=== PATIENT | female | born 1995 | race Caucasian/White ===

== ENCOUNTER 2021-09-23 14:37 | Emergency (ER) | payer OTHER ==
--- NOTE | 2021-09-23 14:49 | ED Syncope ---
General Chief Complaint: Dizziness/Syncope Stated Complaint: DIZZINESS Source of Information: Patient Exam Limitations: No Limitations History of Present Illness Date Seen by Provider: September 23, 2021 Time Seen by Provider: 14:30 Initial Comments Patient is a 25-year-old G1, P0, estimated 29 weeks gestation female whose primary language is Urdu presents with intermittent abdominal pain with constipation since yesterday with headache and syncope earlier this afternoon prior to ED arrival. Patient's spouse states he was treated here for constipation and after taking a Dulcolax suppository the patient became nauseated lightheaded diaphoretic and had a brief syncopal episode lasting 1 to 2 seconds while in the emergency department. The patient did not have any seizure-like activity. Headache is a simple described as moderate to severe. Patient does not have history of headaches. No fevers chills. Patient currently denies abdominal pain, pelvic pain, back pain, vaginal bleed or discharge. No chest pain palpitations or shortness of breath. No other acute symptoms or complaints. Patient spouse acted as an mend worker. No complications with current current . Patient compliant with care. Symptoms Prior to Episode: Lightheadedness, Nausea Precipitating Factors: Other Current Symptoms: Other Allergies and Home Medications Allergies Coded Allergies: No Known Drug Allergies (Unverified , 09/23/21) Patient Home Medication List Home Medication List Reviewed: Yes Review of Systems Constitutional: see HPI EENTM: see HPI Respiratory: see HPI Cardiovascular: see HPI Gastrointestinal: see HPI Genitourinary: see HPI Musculoskeletal: see HPI Skin: see HPI Psychiatric/Neurological: See HPI All Other Systems Reviewed Negative Unless Noted: Yes Past Vrpvfuk-Wxalmh-Varnnh Hx Patient Social History Tobacco Use?: No Physical Exam Vital Signs Vital Signs - First Documented 09/23/21 14:42 Temp 37.0 Pulse 85 Resp 16 B/P (MAP) 107/50 (69) Pulse Ox 100 O2 Delivery Room Air Capillary Refill : Height, Weight, BMI Height: '" Weight: lbs. oz. kg; BMI Method: General Appearance: Other (Diaphoretic, pale) HEENT: PERRL/EOMI, Pharynx Normal, Moist Mucous Membranes Neck: Normal Inspection Cardiovascular: Regular Rate, Rhythm, No Murmur, Normal Peripheral Pulses Respiratory: Chest Non Tender, Lungs Clear, Normal Breath Sounds Gastrointestinal: Non Tender, Soft, Other (Gravid abdomen above the umbilicus, heart tones 150s. Nontender) Neurologic/Psychiatric: Alert, Oriented x3 Skin: Cool Focused Exam Sepsis Stage: Ruled Out Progress/Results/Core Measures Results/Orders Lab Results Laboratory Tests Test 09/23/21 14:45 09/23/21 16:06 Range/Units White Blood Count 10.3 4.3-11.0 10^3/uL Red Blood Count 2.85 L 3.80-5.11 10^6/uL Hemoglobin 8.7 L 11.5-16.0 g/dL Hematocrit 26 L 35-52 % Mean Corpuscular Volume 91 80-99 fL Mean Corpuscular Hemoglobin 31 25-34 pg Mean Corpuscular Hemoglobin Concent 34 32-36 g/dL Red Cell Distribution Width 11.9 10.0-14.5 % Platelet Count 226 130-400 10^3/uL Mean Platelet Volume 11.0 9.0-12.2 fL Immature Granulocyte % (Auto) 1 % Neutrophils (%) (Auto) 68 42-75 % Lymphocytes (%) (Auto) 24 12-44 % Monocytes (%) (Auto) 5 0-12 % Eosinophils (%) (Auto) 2 0-10 % Basophils (%) (Auto) 1 0-10 % Neutrophils # (Auto) 7.0 1.8-7.8 10^3/uL Lymphocytes # (Auto) 2.5 1.0-4.0 10^3/uL Monocytes # (Auto) 0.5 0.0-1.0 10^3/uL Eosinophils # (Auto) 0.2 0.0-0.3 10^3/uL Basophils # (Auto) 0.1 0.0-0.1 10^3/uL Immature Granulocyte # (Auto) 0.1 0.0-0.1 10^3/uL Sodium Level 134 L 135-145 MMOL/L Potassium Level 3.8 3.6-5.0 MMOL/L Chloride Level 103 98-107 MMOL/L Carbon Dioxide Level 21 21-32 MMOL/L Anion Gap 10 5-14 MMOL/L Blood Urea Nitrogen 7 7-18 MG/DL Creatinine 0.68 0.60-1.30 MG/DL Estimat Glomerular Filtration Rate 125 BUN/Creatinine Ratio 10 Glucose Level 89 70-105 MG/DL Calcium Level 8.7 8.5-10.1 MG/DL Corrected Calcium 9.3 8.5-10.1 MG/DL Total Bilirubin < 0.2 0.1-1.0 MG/DL Aspartate Amino Transf (AST/SGOT) 17 5-34 U/L Alanine Aminotransferase (ALT/SGPT) 11 0-55 U/L Alkaline Phosphatase 79 40-136 U/L Total Protein 6.4 6.4-8.2 GM/DL Albumin 3.2 3.2-4.5 GM/DL Urine Color YELLOW Urine Clarity SL CLOUDY Urine pH 8.0 5-9 Urine Specific [place] 1.015 L 1.016-1.022 Urine Protein NEGATIVE NEGATIVE Urine Glucose (UA) NEGATIVE NEGATIVE Urine Ketones NEGATIVE NEGATIVE Urine Nitrite NEGATIVE NEGATIVE Urine Bilirubin NEGATIVE NEGATIVE Urine Urobilinogen 0.2 < = 1.0 MG/DL Urine Leukocyte Esterase NEGATIVE NEGATIVE Urine RBC (Auto) NEGATIVE NEGATIVE Urine RBC NONE /HPF Urine WBC NONE /HPF Urine Squamous Epithelial Cells 2-5 /HPF Urine Crystals NONE /LPF Urine Bacteria MODERATE H /HPF Urine Casts NONE /LPF Urine Mucus NEGATIVE /LPF Urine Culture Indicated NO My Orders Orders - NANDA PRAKASH DO Heart Tones (09/23/21 14:47) Cbc With Automated Diff (09/23/21 14:47) Comprehensive Metabolic Panel (09/23/21 14:47) Orthostatic Vital Signs (Adult (09/23/21 14:47) Ua Culture If Indicated (09/23/21 14:47) Ct Head Wo (09/23/21 15:02) Ns Iv 1000 Ml (Sodium Chloride 0.9%) (09/23/21 15:15) Ondansetron Injection (Zofran Injectio (09/23/21 15:15) Medications Given in ED Current Medications Medications Dose Ordered Sig/Jesus Alberto Route Start Time Stop Time Status Last Admin Dose Admin Ondansetron HCl 8 mg ONCE ONCE IVP 09/23/21 15:15 09/23/21 15:16 DC 09/23/21 15:12 8 MG Vital Signs/I&O 09/23/21 09/23/21 14:42 15:00 Temp 37.0 Pulse 85 Resp 16 B/P (MAP) 107/50 (69) 108/62 (77) 108/63 (78) 102/61 (75) Pulse Ox 100 O2 Delivery Room Air Departure Communication (Admissions) CT head: No acute findings. Patient with syncope syncope, headache and third trimester . Headache is moderate to severe. CT head is negative. Patient afebrile, no neck stiffness or rigidity, no rash or fever. Blood pressure improved with IV fluids. Suspect headache is secondary to syncopal episode. Patient has had some constipation with abdominal pain in the past 24 hours treated with Dulcolax at home prior to nausea episode. heart tones 150s. No abdominal pelvic pain or vaginal bleeding in the emergency department. Concern for possible uterine abruption. Ultrasound not available at this facility. Case discussed with on-duty ER provider at [facility] emergency department who assumes care of patient to the facility. Family members and patient updated of lab and imaging results with recommendations of outpatient care. Patient remains in stable condition prior to transfer. Impression Primary Impression: Syncope Additional Impressions: Headache Third trimester Disposition: SHT-TRM HOSP Condition: Stable Transfer Method of Transfer: EMS NANDA PRAKASH DO September 23, 2021 14:49
[2021-09-23 14:58] LABS: BASOPHILS # (AUTO) 0.1 10^3/uL (0.0-0.1); BASOPHILS % (AUTO) 1 % (0-10); EOSINOPHILS # (AUTO) 0.2 10^3/uL (0.0-0.3); EOSINOPHILS % (AUTO) 2 % (0-10); HEMATOCRIT 26 % (35-52); HEMOGLOBIN 8.7 g/dL (11.5-16.0); LYMPHOCYTES # (AUTO) 2.5 10^3/uL (1.0-4.0); LYMPHOCYTES % (AUTO) 24 % (12-44); MEAN CORPUSCULAR HEMOGLOBIN 31 pg (25-34); MEAN CORPUSCULAR HGB CONC 34 g/dL (32-36); MEAN CORPUSCULAR VOLUME 91 fL (80-99); MONOCYTES # (AUTO) 0.5 10^3/uL (0.0-1.0); MONOCYTES % (AUTO) 5 % (0-12); NEUTROPHILS % (AUTO) 68 % (42-75); PLATELET COUNT 226 10^3/uL (130-400); WHITE BLOOD COUNT 10.3 10^3/uL (4.3-11.0)
[2021-09-23 15:00] VITALS: BP_SYST 102; BP_SYST 108; BP_DIAS 61; BP_DIAS 62; BP_DIAS 63
[2021-09-23] MEDS: NS IV 1000 ML 1,000 ML IV SCH ×2 (15:12→15:51)
[2021-09-23] MEDS ORDERED: ONDANSETRON 4 MG/2 ML (SDV) Z0FRAN IVP ONE (15:15)
[2021-09-23 15:28] LABS: CHLORIDE 103 MMOL/L (98-107); POTASSIUM 3.8 MMOL/L (3.6-5.0); SODIUM 134 MMOL/L (135-145)
[2021-09-23 15:29] LABS: ALANINE AMINOTRANSFERASE 11 U/L (0-55); ALBUMIN 3.2 GM/DL (3.2-4.5); ALKALINE PHOSPHATASE 79 U/L (40-136); BILIRUBIN,TOTAL < 0.2 MG/DL (0.1-1.0); BUN/CREATININE RATIO 10; CALCIUM 8.7 MG/DL (8.5-10.1); CARBON DIOXIDE 21 MMOL/L (21-32); CREATININE SERUM 0.68 MG/DL (0.60-1.30); GFR ESTIMATED 125; GLUCOSE 89 MG/DL (70-105); TOTAL PROTEIN 6.4 GM/DL (6.4-8.2)
--- NOTE | 2021-09-23 15:55 | Diagnostic Imaging Report ---
PROCEDURE: CT head without contrast. TECHNIQUE: Multiple contiguous axial images were obtained through the brain without the use of intravenous contrast. Auto Exposure Controls were utilized during the CT exam to meet ALARA standards for radiation dose reduction. INDICATION: Dizziness and syncope as well as severe headache. COMPARISON: No prior studies are available for comparison. The ventricles and sulci are within normal limits. No sulcal effacement or midline shift is identified. No acute intra-axial or extra-axial hemorrhage is detected. Cisterns are patent. Visualized paranasal sinuses show some mucosal thickening of the ethmoid air cells. IMPRESSION: No acute intracranial process is detected. Dictated by: Dictated on workstation # [id number]
[2021-09-23 16:10] LABS: BILIRUBIN,URINE NEGATIVE (NEGATIVE); CLARITY,URINE SL CLOUDY; COLOR,URINE YELLOW; GLUCOSE, URINE (UA) NEGATIVE (NEGATIVE); KETONES,URINE NEGATIVE (NEGATIVE); LEUKOCYTE ESTERASE ,URINE NEGATIVE (NEGATIVE); NITRITE,URINE NEGATIVE (NEGATIVE); PROTEIN,URINE NEGATIVE (NEGATIVE)
[2021-09-23 16:17] LABS: BACTERIA,URINE MODERATE /HPF
[2021-09-23 17:17] VITALS: BP 105/64
== END 2021-09-23 17:10 | disposition still patient (30) ==
LOC: ER FS 14:39
DX: O99.353 Diseases of the nervous system complicating pregnancy, third trimester (principal); R55 Syncope and collapse; R51.9 Headache, unspecified; Z3A.29 29 weeks gestation of pregnancy
CPT/HCPCS: 36415; 70450; 80053; 81000; 85025

== ENCOUNTER 2021-09-23 17:50 | Outpatient (CLI) | payer OTHER ==
[~2021-09-23] VITALS: Ht 162 cm; Wt 70.4 kg
[2021-09-23 18:14] VITALS: BP 112/67
[2021-09-23] MEDS ORDERED: FAMOTIDINE 20MG/2ML IV (PEPCID) IVP ONE (18:45)
--- NOTE | 2021-09-24 08:18 | Physician Query-Final Dx ---
TJ,09/24/21 0818: Clinic Account Progress/Dx Physician Query: Please give diagnosis Please include # weeks gestation Date of Service September 23, 2021 at 17:50 EDWAR DRAPER DO 09/25/21 1215: Clinic Account Progress/Dx DIAGNOSIS: Diagnosis 26 week IUP Epigastric pain Nausea TJ,AprSeptember 24, 2021 08:18 EDWAR DRAPER DO Sep 25, 2021 12:15
== END 2021-09-23 19:00 | disposition home or self-care (01) ==
LOC: LDRP 17:50 → WSo 17:50
PROVIDERS: ATTEND Obstetrics & Gynecology
DX: O26.892 Other specified pregnancy related conditions, second trimester (principal); R55 Syncope and collapse; R10.13 Epigastric pain; R11.0 Nausea; Z3A.26 26 weeks gestation of pregnancy
CPT/HCPCS: 99212